=== PATIENT | female | born 1940 | race Caucasian/White ===

== ENCOUNTER → 2019-12-07 | Outpatient (CLI) | payer MEDICARE, BC ==
[~2019-12-07] MED LIST: OMNIPAQUE 350 MG/ML, 100ML BOTTLE ONE
[2019-12-07 10:21] LABS: CREATININE 1.13 mg/dL (0.55-1.02)
== END | disposition home or self-care (01) ==
LOC: RAD 09:37
PROVIDERS: ATTEND Surgery
DX: Z01.812 Encounter for preprocedural laboratory examination (principal); D05.12 Intraductal carcinoma in situ of left breast; R23.4 Changes in skin texture; K76.0 Fatty (change of) liver, not elsewhere classified; K76.89 Other specified diseases of liver; K57.30 Diverticulosis of large intestine without perforation or abscess without bleeding; M51.36 Other intervertebral disc degeneration, lumbar region; M47.814 Spondylosis without myelopathy or radiculopathy, thoracic region
CPT/HCPCS: 36415; 71260; 74177; 78306; 82565; A9503; Q9967

== ENCOUNTER 2019-12-17 10:15 | Day surgery (SDC) | payer MEDICARE, BC ==
[~2019-12-17] VITALS: Ht 177.8 cm; Wt 86.2 kg
[~2019-12-17 10:15] MED LIST changes: +AREDS PO; +LEVO125T PO; -OMNIPAQUE 350 MG/ML, 100ML BOTTLE ONE
[2019-12-17] MEDS ORDERED: LIDOCAINE-MPF 1%, 5ML ONE (10:32)
[2019-12-17] MEDS ORDERED: LACTATED RINGERS 1,000 ML IV SCH (12:46)
[2019-12-17 12:47] VITALS: BP 139/85
[2019-12-17] MEDS ORDERED: CHLORHEXIDINE 15 ML UDC MM ONE (13:00)
[2019-12-17] MEDS ORDERED: ISOSULFAN BLUE 10 MG/ML, 5ML IV ONE (13:30)
[2019-12-17] MEDS ORDERED: BUPIVACAINE/PF-EPI 0.5% 1:200K ONE (13:30)
[2019-12-17] MEDS ORDERED: MIDAZOLAM 1 MG/ML, 2ML ONE (13:57)
[2019-12-17] MEDS ORDERED: CEFAZOLIN 1,000 MG ONE (13:58)
[2019-12-17] MEDS ORDERED: ROCURONIUM 10 MG/ML,10ML ONE (13:58)
[2019-12-17] MEDS ORDERED: PROPOFOL 10 MG/ML, 20ML ONE (13:58)
[2019-12-17] MEDS ORDERED: SUCCINYLCHOLINE 20 MG/ML, 10ML ONE (13:58)
[2019-12-17] MEDS ORDERED: ONDANSETRON 2MG/ML, 2ML ONE (13:58)
[2019-12-17] MEDS ORDERED: DEXAMETHASONE 4 MG/ML, 1ML ONE (13:58)
[2019-12-17] MEDS ORDERED: OXYcodone 5 MG/5 ML ORAL.SOL UDC PO PRN (14:30)
[2019-12-17] MEDS ORDERED: MEPERIDINE/PF 25MG/0.5ML IVPush PRN (14:30)
[2019-12-17] MEDS ORDERED: PROMETHAZINE 25 MG/ML, 1ML IV PRN (14:30)
[2019-12-17] MEDS ORDERED: METOCLOPRAMIDE 5 MG/ML, 2ML IV PRN (14:30)
[2019-12-17] MEDS ORDERED: LABETALOL 5MG/ML, 20ML IV PRN (14:30)
[2019-12-17] MEDS ORDERED: KETOROLAC 30 MG/1 ML IV PRN (14:30)
[2019-12-17] MEDS ORDERED: hydrALAzine 20 MG/ML, 1ML IV PRN (14:30)
[2019-12-17] MEDS ORDERED: HYDROmorphone 1 MG/ML, 1ML INJ IV PRN (14:30)
[2019-12-17] MEDS ORDERED: DIAZEPAM 5 MG/ML, 2ML IV PRN ×2 (14:30)
[2019-12-17] MEDS ORDERED: ALBUTEROL SULFATE 2.5 MG/3 ML NPPB PRN (14:30)
[2019-12-17] MEDS ORDERED: ONDANSETRON 2MG/ML, 2ML IVPush PRN (14:30)
[2019-12-17] MEDS ORDERED: FENTANYL PF 100 MCG/2ML ONE ×2 (14:32→15:49)
[2019-12-17] MEDS: FENTANYL PF 100 MCG/2ML IV PRN ×3 (15:45→16:25)
[2019-12-17] MEDS ORDERED: OXYcodone 5 MG/5 ML ORAL.SOL UDC ONE (15:49)
== END 2019-12-17 17:45 | disposition home or self-care (01) ==
LOC: OUT 10:15 → EDSTATUS 14:00 → OUT 17:45
PROVIDERS: ATTEND Surgery
DX: D05.12 Intraductal carcinoma in situ of left breast (principal); Z20.828 Contact with and (suspected) exposure to other viral communicable diseases; E03.9 Hypothyroidism, unspecified; Z79.890 Hormone replacement therapy; Z79.899 Other long term (current) drug therapy; Z85.3 Personal history of malignant neoplasm of breast; Z88.2 Allergy status to sulfonamides; Z96.653 Presence of artificial knee joint, bilateral; Z98.890 Other specified postprocedural states; Z80.3 Family history of malignant neoplasm of breast
CPT/HCPCS: 19303; 36415; 76098; 78195; 87635; 88305; 88307; 93005; A9541; C1729; J0330; J0690; J1100; J2250; J2405; J2704; J3010; J7120